=== PATIENT | female | born 1930 | race Caucasian/White ===

== ENCOUNTER → 2017-04-15 | Outpatient (CLI) | payer OTHER | LOC: FCPNEURO 23:10 | PROVIDERS: ATTEND Internal Medicine Sleep Medicine | DX: G47.33 Obstructive sleep apnea (adult) (pediatric) (principal); G47.36 Sleep related hypoventilation in conditions classified elsewhere; G47.61 Periodic limb movement disorder ==

== ENCOUNTER 2017-09-07 13:46 | Emergency (ER) | payer OTHER ==
[2017-09-07 14:17] VITALS: RESP 18
--- NOTE | 2017-09-07 15:02 | EDPHY ---
H & P Stated Complaint: Infected skin tear RLE since Thursday - Personal History Current Tetanus Diphtheria and Acellular Pertussis (TDAP): Unsure - Medical/Surgical History Hx Asthma: No Hx Chronic Respiratory Disease: No Hx Diabetes: No Hx Cardiac Disease: No Hx Renal Disease: No Hx Cirrhosis: No Hx Alcoholism: No Hx HIV/AIDS: No Hx Splenectomy or Spleen Trauma: No Other PMH: high blood pressure, colitis. 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 CVA. dementia - Social History Smoking Status: Former smoker Time Seen by Provider: 09/07/17 14:32 HPI/ROS: Chief complaint: Right lower extremity skin tear with infection History of present illness: This is an 86-year-old female who presents to the emergency department with family for a right lower extremity skin tear that has subsequently developed an infection. Family reports patient sustained a skin tear a week ago. Over the last few days she has developed redness, mild swelling warmth and discomfort around the skin tear. Symptoms are slowly worsening. No report of other associated signs or symptoms including no fevers , no red streaking up the leg, no other lesions. (Rikki Chavarria) - Physical Exam Exam: General: Alert, nontoxic Skin: There is a skin tear to the anterior aspect of the right lower leg. There is surrounding erythema, mild edema and warmth to palpation. No induration or fluctuance to suggest abscess. No red streaking to suggest lymphangitis. Musculoskeletal: Patient is moving the right lower extremity well. Vascular: DP and PT P pulses 2+. Neurologic: Sensation intact throughout the right leg (Rikki Chavarria) Constitutional: Initial Vital Signs Temperature (C) 37.1 C 09/07/17 14:05 Heart Rate 67 09/07/17 14:05 Respiratory Rate 18 09/07/17 14:05 Blood Pressure 198/109 H 09/07/17 14:05 O2 Sat (%) 94 09/07/17 14:05 O2 Delivery Mode Room Air Allergies/Adverse Reactions: amitriptyline Allergy (Intermediate, Verified 09/07/17 14:12) Other-Enter Comments Home Medications: Medication Instructions Recorded Calcium Carbonate [Tums 500MG (*)] 1,000 mg PO BID 01/05/15 Cholecalciferol Vit D3 [Vitamin D3 5,000 units PO DAILY 01/05/15 (*)] Cyanocobalamin [Vitamin B12 (*)] 1,000 mcg PO DAILY 09/25/15 Herbals/Supplements -Info Only 1 ea PO DAILY 09/25/15 Multivitamins [Multivitamin (*)] 1 each PO DAILY 09/25/15 amLODIPine BESYLATE [Norvasc 2.5 2.5 mg PO DAILY 09/25/15 mg (*)] Budesonide [Entocort EC] 9 mg PO DAILY #0 cap.ec 09/28/15 Loperamide HCl [Imodium] 4 mg PO BID PRN #0 cap 09/28/15 Propranolol Sr [Inderal LA 60mg 60 mg PO DAILY #30 cap 09/28/15 (*)] Cephalexin [Keflex] 500 mg PO QID 7 Days cap 09/07/17 Medical Decision Making ED Course/Re-evaluation: The patient was evaluated and managed by the physician's itinerant teacher assistant. My cosignature indicates that I reviewed the chart and I agree with the findings and plan of care as documented. I am the secondary supervising physician. ( Smita Hernandez) Patient discussed with my secondary supervising physician Dr. Smita Hernandez. Patient presents to the emergency department for a right leg skin tear that appears to have gotten infected. She does appear to have a mild cellulitis. Wound has been cleaned, the area demarcated and dressed. Patient is being given a dose of Ancef. I do believe she is appropriate for discharge home. She will be discharged on Keflex. Home care is discussed at length with family. They are given very strict return precautions. They voiced understanding and agreement with plan. (Rikki Chavarria) Differential Diagnosis: Included but not limited to cellulitis, abscess, unlikely osteomyelitis, lymphangitis (Rikki Chavarria) - Data Points Medications Given: Discontinued Medications Acetaminophen (Tylenol) 650 mg PO EDNOW ONE Stop: 09/07/17 15:16 Last Admin: 09/07/17 15:18 Dose: 650 mg Cefazolin Sodium/Dextrose (Ancef 1 Gm (Premix)) 50 mls @ 200 mls/hr IV EDNOW ONE PRN Reason: Protocol Stop: 09/07/17 15:02 Last Admin: 09/07/17 15:02 Dose: 50 mls Departure - Departure Disposition: Home, Routine, Self-Care Clinical Impression: Cellulitis Qualifiers: Site of cellulitis: extremity Site of cellulitis of extremity: lower extremity Laterality: right Qualified Code(s): L03.115 - Cellulitis of right lower limb Condition: Good Instructions: Cellulitis (ED), Acute Wounds (ED) Additional Instructions: Follow-up with your primary care doctor in 1-2 days for recheck Take all antibiotics as prescribed until finished even feeling better Keep wound clean with soap and water and apply antibacterial ointment and a dressing at least twice daily If symptoms worsen or new symptoms develop return to the emergency room for recheck Referrals: Tye Waggoner [Primary Care Provider] - As per Instructions Prescriptions: Cephalexin [Keflex] 500 mg PO QID 7 Days cap
[2017-09-07] MEDS ORDERED: ACETAMINOPHEN 325 MG TAB PO ONE (15:15)
[2017-09-07 15:48] VITALS: BP 116/85; PULSE 71; TEMP 98.4; O2SAT 96
== END 2017-09-07 15:45 | disposition home or self-care (01) ==
DX: L03.115 Cellulitis of right lower limb (principal); Z87.891 Personal history of nicotine dependence; Z86.73 Personal history of transient ischemic attack (TIA), and cerebral infarction without residual deficits
CPT/HCPCS: 96365; 99284; J0690

== ENCOUNTER 2017-12-24 10:48 | Inpatient (IN) | payer OTHER ==
--- NOTE | 2017-12-24 11:07 | CPEKG ---
Heart Rate: 82 RR Interval: 732 P-R Interval: 192 QRSD Interval: 90 QT Interval: 424 QTC Interval: 496 P [place]: -6 QRS [place]: -48 T Wave [place]: 50 EKG Severity - ABNORMAL ECG - EKG Impression: SINUS RHYTHM EKG Impression: LEFT ANTERIOR FASCICULAR BLOCK EKG Impression: LEFT VENTRICULAR HYPERTROPHY EKG Impression: BORDERLINE PROLONGED QT INTERVAL Electronically Signed By: Ama Jeffrey 24-Dec-2017 14:54:50
--- NOTE | 2017-12-24 11:18 | EDPHY ---
H & P Time Seen by Provider: 12/24/17 10:56 HPI/ROS: CHIEF COMPLAINT: Unresponsive Limitations: Unresponsiveness HISTORY OF PRESENT ILLNESS: 87-year-old female with dementia and prior CVA presents with unresponsiveness. She was last seen normal last evening at 5:00 p.m.. She has felt fatigued over the last week, but no other symptoms. She was found this morning in bed, unresponsive and soaked in urine. She was unable to sit up unassisted and unable to ambulate. Recently had a urinary tract infection and was treated with an unknown antibiotic. No fever and no recent fall. REVIEW OF SYSTEMS: Unable to obtain Past Medical/Surgical History: Dementia CVA Social History: Lives with family, has caregivers during the day Smoking Status: Former smoker Physical Exam: General Appearance: Opens eyes to voice Eyes: Pupils equal and round, no conjunctival pallor ENT, Mouth: Mucous membranes moist Neck: Normal inspection Respiratory: Lungs are clear to auscultation anteriorly Cardiovascular: Regular rate and rhythm Gastrointestinal: Abdomen is soft, no apparent tenderness Back: Abrasion on right side of mid back Neurological: Opens eyes to voice, moves all extremities spontaneously, no response to commands Skin: Warm and dry Extremities: Normal inspection Psychiatric: Unable to determine Constitutional: Initial Vital Signs Temperature (C) 36.9 C 12/24/17 10:52 Heart Rate 93 12/24/17 10:52 Respiratory Rate 18 12/24/17 10:52 Blood Pressure 117/94 H 12/24/17 10:52 O2 Sat (%) 92 12/24/17 10:52 O2 Delivery Mode Room Air Allergies/Adverse Reactions: amitriptyline Allergy (Intermediate, Verified 12/24/17 10:50) Other-Enter Comments Home Medications: Medication Instructions Recorded Calcium Carbonate [Tums 500MG (*)] 1,000 mg PO BID 01/05/15 Cholecalciferol Vit D3 [Vitamin D3 5,000 units PO DAILY 01/05/15 (*)] Cyanocobalamin [Vitamin B12 (*)] 1,000 mcg PO DAILY 09/25/15 amLODIPine BESYLATE [Norvasc 2.5 2.5 mg PO BID 09/25/15 mg (*)] Budesonide [Entocort EC] 9 mg PO DAILY #0 cap.ec 09/28/15 Loperamide HCl [Imodium] 4 mg PO BID PRN #0 cap 09/28/15 Propranolol Sr [Inderal LA 60mg 60 mg PO DAILY #30 cap 09/28/15 (*)] Medical Decision Making - Diagnostics EKG Interpretation: EKG interpreted by me reveals normal sinus rhythm, rate 82, LVH Imaging Results: Chest X-Ray 12/24/17 10:58 Impression: Stable portable chest. Head CT 12/24/17 10:58 Impression: 1. No acute intracranial findings. If symptoms persist and clinical suspicion warrants, consider MRI. 2. Diffuse cerebral atrophy with periventricular and subcortical low attenuation consistent with chronic microvascular ischemic gliosis. Findings discussed with SHEEBA MARTINEZ 12/24/2017 at 12:07. Imaging: Discussed imaging studies w/ call center representative Radiologist, I viewed and interpreted images myself ED Course/Re-evaluation: This patient presents with altered mental status, without localizing signs or symptoms. Stat EKG reveals no evidence of dysrhythmia or ischemia. CT scan of the brain and chest x-ray ordered. cath UA ordered d/t recent UTI. CT scan of the brain read by the radiologist reveals no acute disease. Chest x- ray is unremarkable. Laboratory studies reveal elevated troponin 0.43, consistent with non ST segment elevation PA. Results discussed with the family. The patient's daughter has medical POA and the patient is DNR. UA c/w UTI; likely reason for AMS and leukocytosis. Urine cx sent and Rocephin 1gm IV given. The hospitalist service was consulted for admission. Will admit to stepdown. This pt utilized 35 minutes of critical care time by me exclusive of unbundled procedures. Time spent in direct pt care, reassessments, discussions with family , ordering and review of testing, consultation. Organ at risk: brain/heart Differential Diagnosis: Altered mental status including but not limited to hypoglycemia, infectious process, electrolyte abnormality, head injury, CVA, and intoxicants. - Data Points Laboratory Results: Laboratory Results 12/24/17 12:30 12/24/17 12:30 Medications Given: Acetaminophen (Tylenol Rectal) 650 mg [place] Q4HRS PRN PRN Reason: Pain, Mild/Fever,Can't Take PO Stop: 06/22/18 13:48 Last Admin: 12/25/17 23:35 Dose: 650 mg Acetaminophen (Tylenol) 650 mg PO Q4HRS PRN PRN Reason: Pain, Mild/Fever, Can Take PO Stop: 06/25/18 00:34 Last Admin: 12/27/17 21:14 Dose: 650 mg Amoxicillin/Clavulanate Potassium (Augmentin 875mg) 875 mg PO BID [facility] Stop: 01/26/18 10:59 Last Admin: 12/28/17 07:46 Dose: 875 mg Enoxaparin Sodium (Lovenox) 40 mg SC DAILY [facility] Stop: 06/23/18 08:59 Last Admin: 12/28/17 07:46 Dose: 40 mg Hydralazine HCl (Apresoline) 5 mg IVP Q6HRS PRN PRN Reason: SBP>190 Stop: 06/26/18 04:17 Last Admin: 12/28/17 04:51 Dose: 5 mg Metoprolol Tartrate (Lopressor) 50 mg PO BID [facility] Stop: 06/26/18 08:44 Last Admin: 12/28/17 09:10 Dose: Not Given Ondansetron HCl (Zofran Odt) 4 mg PO Q4HRS PRN PRN Reason: Nausea/Vomiting, Use 1st Stop: 06/22/18 13:48 Last Admin: 12/27/17 21:13 Dose: 4 mg Vancomycin HCl (Vancocin Oral Liquid) 125 mg PO QID JOE PRN Reason: Protocol Stop: 01/23/18 20:59 Last Admin: 12/28/17 04:52 Dose: 125 mg Discontinued Medications Enalaprilat (Vasotec Iv) 1.25 mg IVP Q6HRS [facility] Stop: 06/23/18 11:59 Last Admin: 12/26/17 05:21 Dose: 1.25 mg Sodium Chloride (Ns) 500 mls @ 1,000 mls/hr IV EDNOW ONE PRN Reason: Protocol Stop: 12/24/17 12:38 Last Admin: 12/24/17 12:17 Dose: 500 mls Ceftriaxone Sodium/Dextrose (Rocephin 1 Gm (Premix)) 50 mls @ 100 mls/hr IV EDNOW ONE PRN Reason: Protocol Stop: 12/24/17 14:17 Last Admin: 12/24/17 13:52 Dose: 50 mls Potassium Chloride/Sodium Chloride (Ns W/ 20 Kcl/L) 1,000 mls @ 100 mls/hr IV CONT [facility] Stop: 06/22/18 13:59 Last Admin: 12/26/17 07:12 Dose: 1,000 mls Ceftriaxone Sodium/Dextrose (Rocephin 1 Gm (Premix)) 50 mls @ 100 mls/hr IV DAILY [facility] PRN Reason: Protocol Stop: 01/24/18 08:59 Last Admin: 12/27/17 11:08 Dose: Not Given Acyclovir 450 mg/ Dextrose 109 mls @ 100 mls/hr IV Q8H JOE Stop: 01/23/18 17:59 Last Admin: 12/25/17 09:52 Dose: 109 mls Metronidazole/Sodium Chloride (Flagyl 500 Mg (Premix)) 100 mls @ 100 mls/hr IV Q8HRS JOE PRN Reason: Protocol Stop: 01/23/18 22:56 Last Admin: 12/26/17 05:21 Dose: 100 mls Potassium Chloride 40 meq/ (Dextrose/Sodium Chloride) 1,000 mls @ 100 mls/hr IV CONT [facility] Stop: 06/24/18 08:29 Last Admin: 12/28/17 04:56 Dose: 1,000 mls Magnesium Sulfate/Dextrose (Magnesium Sulf 1 Gm (Premix)) 100 mls @ 100 mls/hr IV ONCE ONE Stop: 12/28/17 08:46 Last Admin: 12/28/17 07:56 Dose: 100 mls Metoprolol Tartrate (Lopressor Injection) 2.5 mg IVP ONCE ONE Stop: 12/25/17 20:06 Last Admin: 12/25/17 20:15 Dose: 2.5 mg Metoprolol Tartrate (Lopressor) 12.5 mg PO BID JOE Stop: 06/24/18 20:59 Last Admin: 12/27/17 08:26 Dose: 12.5 mg Metoprolol Tartrate (Lopressor) 25 mg PO BID JOE Stop: 06/25/18 08:44 Last Admin: 12/28/17 05:38 Dose: 25 mg Metoprolol Tartrate (Lopressor Injection) 5 mg IVP ONCE ONE Stop: 12/28/17 07:22 Last Admin: 12/28/17 07:26 Dose: 5 mg Nitroglycerin (Nitro-Bid 2%) 0.5 inch TP EDNOW ONE Stop: 12/24/17 13:17 Last Admin: 12/24/17 13:23 Dose: 0.5 inch Potassium Chloride (Klor-Con) 40 meq PO ONCE ONE Stop: 12/28/17 08:01 Last Admin: 12/28/17 09:01 Dose: 40 meq Departure - Departure Disposition: [facility] Inpatient Acute Clinical Impression: Elevated troponin UTI (urinary tract infection) Qualifiers: Urinary tract infection type: acute cystitis Hematuria presence: without hematuria Qualified Code(s): N30.00 - Acute cystitis without hematuria Altered mental status Qualifiers: Altered mental status type: stupor Qualified Code(s): R40.1 - Stupor Condition: Serious
[2017-12-24] MEDS ORDERED: NS 500 ML IV ONE (12:09)
[2017-12-24 12:37] LABS: PLATELET COUNT 245 10^3/uL (150-400)
[2017-12-24] MEDS ORDERED: NITROGLYCERIN 2% 1 GM PACKET TP ONE (13:16)
[2017-12-24] MEDS ORDERED: ONDANSETRON DISINTEGRATING 4 MG TAB PO PRN (13:49)
[2017-12-24] MEDS ORDERED: ONDANSETRON 4 MG/2 ML VIAL IVP PRN (13:49)
[2017-12-24] MEDS: ACETAMINOPHEN 650 MG SUPP PR PRN (14:56)
[2017-12-24] MEDS: NS W/ 20 KCl/L 1,000 ML IV SCH (14:58)
--- NOTE | 2017-12-24 17:00 | PDGENHP ---
History and Physical - Chief Complaint Acute encephalopathy - History of Present Illness Primary care provider: Dr. Tye Waggoner HPI: 87-year-old female presenting with acute encephalopathy characterized as complete unresponsiveness with onset of symptoms on the morning of presentation with associated urinary incontinence, fecal incontinence, loose stool, and generalized weakness. The patient was last seen at her baseline at 5:00 p.m. On the day prior to this presentation, and the patient's daughter reports that patient had already gone to bed and was asleep at 6:00 p.m. When she arrived home from work. On the morning of presentation, the patient's daughter and her daughter's found the patient unresponsive in her own stool and urine, and attempted to get her to the shower to clean up. The patient was unable to stand was unable to ambulate, and she was basically care into the shower, cleaned up, and brought to the emergency department. The symptoms have occurred in the context of approximately 1 week of fatigue with persistent duration, but no expression of chest pain, dysuria, abdominal pain, headache, back pain. The patient's baseline mental status is verbally conversant, able to complete her ADLs comma but with poor memory, intermittent disorientation, and withdrawn affect. History Information - Allergies/Home Medication List Allergies/Adverse Reactions: amitriptyline Allergy (Intermediate, Verified 12/24/17 10:50) Other-Enter Comments Home Medications: Calcium Carbonate [Tums 500MG (*)] 1,000 mg PO BID 01/05/15 [Last Taken 09/24/15 ] Cholecalciferol Vit D3 [Vitamin D3 (*)] 5,000 units PO DAILY 01/05/15 [Last Taken 09/24/15] Cyanocobalamin [Vitamin B12 (*)] 1,000 mcg PO DAILY 09/25/15 [Last Taken ] amLODIPine BESYLATE [Norvasc 2.5 mg (*)] 2.5 mg PO BID 09/25/15 [Last Taken 07/30] I have personally reviewed and updated: family history, medical history, social history, surgical history - Past Medical History Additional medical history: Microscopic colitis on chronic entero court, most recent flare several weeks ago. Hypertension. Urinary tract infection approximately a month ago treated with Keflex. Dementia. HSV meningitis. Cerebral amyloid angiopathy. Osteoporosis. Punctate intracranial hemorrhage September 2015 - Surgical History Reports: no pertinent surgical hx - Family History Additional family history: No family history of venous thromboembolism, her daughter from lung cancer - Social History Smoking Status: Former smoker Alcohol Use: None Drug Use: None Additional social history: Patient resides with her daughter and her family, she has a medical sales consultant who provides some private duty home care Review of Systems Review of Systems: ROS: 10pt was reviewed & negative except for what was stated in HPI & below Constitutional: Reports: weakness Neurological: Reports: other (Unresponsiveness) Physical Exam Physical Exam: Temp Pulse Resp BP Pulse Ox 37.1 C 77 21 H 151/134 H 93 12/24/17 15:58 12/24/17 15:58 12/24/17 15:58 12/24/17 15:58 12/24/17 15:58 Constitutional: no apparent distress, not in pain, No uncomfortable Eyes: PERRL, other (Fixed, not track) Ears, Nose, Mouth, Throat: dry mucous membranes Cardiovascular: regular rate and rhythym, no murmur, rub, or gallop, No edema Respiratory: no respiratory distress, no rales or rhonchi, clear to auscultation , reduced air movement (Poor inspiratory and expiratory effort) Gastrointestinal: normoactive bowel sounds, soft, non-tender abdomen, no palpable masses, No distension Genitourinary: no bladder fullness, no bladder tenderness Skin: other (Some scattered abrasions bilateral lower extremities without surrounding erythema) Neurologic: other (Alert awake oriented times 0), No facial droop Psychiatric: encephalopathic, other (Moans to tactile stimuli) Lab Data & Imaging Review 12/24/17 12:30 12/24/17 12:30 WBC 25.77 10^3/uL (3.80-9.50) H 12/24/17 12:30 RBC 5.90 10^6/uL (4.18-5.33) H 12/24/17 12:30 Hgb 17.0 g/dL (12.6-16.3) H 12/24/17 12:30 POC Hgb 19.4 gm/dL (12.6-16.3) H 12/24/17 11:37 Hct 51.6 % (38.0-47.0) H 12/24/17 12:30 POC Hct 57 % (38-47) H 12/24/17 11:37 MCV 87.5 fL (81.5-99.8) 12/24/17 12:30 MCH 28.8 pg (27.9-34.1) 12/24/17 12:30 MCHC 32.9 g/dL (32.4-36.7) 12/24/17 12:30 RDW 13.8 % (11.5-15.2) 12/24/17 12:30 Plt Count 245 10^3/uL (150-400) 12/24/17 12:30 MPV 9.5 fL (8.7-11.7) 12/24/17 12:30 Neut % (Auto) 83.5 % (39.3-74.2) H 12/24/17 12:30 Lymph % (Auto) 5.6 % (15.0-45.0) L 12/24/17 12:30 Hunt % (Auto) 9.9 % (4.5-13.0) 12/24/17 12:30 Eos % (Auto) 0.0 % (0.6-7.6) L 12/24/17 12:30 Baso % (Auto) 0.3 % (0.3-1.7) 12/24/17 12:30 Nucleat RBC Rel Count 0.0 % (0.0-0.2) 12/24/17 12:30 Absolute Neuts (auto) 21.51 10^3/uL (1.70-6.50) H 12/24/17 12:30 Absolute Lymphs (auto) 1.44 10^3/uL (1.00-3.00) 12/24/17 12:30 Absolute Monos (auto) 2.55 10^3/uL (0.30-0.80) H 12/24/17 12:30 Absolute Eos (auto) 0.01 10^3/uL (0.03-0.40) L 12/24/17 12:30 Absolute Basos (auto) 0.08 10^3/uL (0.02-0.10) 12/24/17 12:30 Absolute Nucleated RBC 0.00 10^3/uL (0-0.01) 12/24/17 12:30 Immature Gran % 0.7 % (0.0-1.1) 12/24/17 12:30 Immature Gran # 0.18 10^3/uL (0.00-0.10) H 12/24/17 12:30 POC Sodium 136 mEq/L (135-145) 12/24/17 11:37 Sodium 134 mEq/L (135-145) L 12/24/17 12:30 POC Potassium 4.5 mEq/L (3.3-5.0) 12/24/17 11:37 Potassium 3.7 mEq/L (3.5-5.2) 12/24/17 12:30 POC Chloride 95 mEq/L (97-110) L 12/24/17 11:37 Chloride 96 mEq/L (97-110) L 12/24/17 12:30 Carbon Dioxide 25 mEq/l (22-31) 12/24/17 12:30 Anion Gap 13 mEq/L (8-16) 12/24/17 12:30 POC BUN 21 mg/dL (7-23) 12/24/17 11:37 BUN 16 mg/dL (7-23) 12/24/17 12:30 Creatinine 0.6 mg/dL (0.6-1.0) 12/24/17 12:30 POC Creatinine 0.7 mg/dL (0.6-1.0) 12/24/17 11:37 Estimated GFR > 60 12/24/17 12:30 Glucose 126 mg/dL (70-100) H 12/24/17 12:30 POC Glucose 146 mg/dL (70-100) H 12/24/17 11:37 Calcium 9.9 mg/dL (8.5-10.4) 12/24/17 12:30 Troponin I 0.433 ng/mL (0.000-0.034) H 12/24/17 12:30 Urine Color YELLOW 12/24/17 13:08 Urine Appearance MODERATELY TURBID 12/24/17 13:08 Urine pH 5.0 (5.0-7.5) 12/24/17 13:08 Ur Specific [place] 1.014 (1.002-1.030) 12/24/17 13:08 Urine Protein 2+ (NEGATIVE) H 12/24/17 13:08 Urine Ketones TRACE (NEGATIVE) H 12/24/17 13:08 Urine Blood 1+ (NEGATIVE) H 12/24/17 13:08 Urine Nitrate POSITIVE (NEGATIVE) H 12/24/17 13:08 Urine Bilirubin NEGATIVE (NEGATIVE) 12/24/17 13:08 Urine Urobilinogen NEGATIVE EU (0.2-1.0) 12/24/17 13:08 Ur Leukocyte Esterase 2+ (NEGATIVE) H 12/24/17 13:08 Urine RBC 3-5 /hpf (0-3) H 12/24/17 13:08 Urine WBC 50-182 /hpf (0-3) H 12/24/17 13:08 Ur Epithelial Cells TRACE /lpf (NONE-1+) 12/24/17 13:08 Urine Bacteria 2+ /hpf (NONE SEEN) H 12/24/17 13:08 Urine Mucus 1+ /lpf (NONE-1+) 12/24/17 13:08 Urine Glucose NEGATIVE (NEGATIVE) 12/24/17 13:08 Visualized and Interpreted Chest x-ray results: Yes Chest X-Ray results: no infiltrate, other (Fibrotic changes) Visualized and Interpreted EKG results: Yes EKG Interpretation: Positive for: other (Left anterior fascicular block, normal sinus rhythm) Assessment & Plan Assessment: 87-year-old female presents with sepsis and acute encephalopathy, type 2 NSTEMI , suspected urinary tract infection Plan: 1. Sepsis. Present on admission, qSOFA score of 2 (encephalopathy and tachypnea ), evidenced by autonomic dysregulation in the setting of infection with evidence of end-organ failure, including acute encephalopathy, type [address]- elevation [place] -supportive care with IV fluids, empiric IV antibiotics and antivirals given her history of HSV meningitis -step-down unit level of care, monitor hemodynamics closely -complete infectious workup including respiratory viral panel, strep swab given recent exposure, blood cultures, procalcitonin level, lumbar puncture if above negative 2. Possible urinary tract infection. Present on admission, Likely infectious source with positive urinalysis, urinary incontinence, mental status changes, leukocytosis and fever -IV ceftriaxone day 1 -urine cultures pending -blood culture sent -order outside records from primary care provider office to evaluate her most recent urine culture and sensitivity 3. Type [address]-elevation myocardial infarction. Present on admission, Evidenced by troponin 0.4, most likely secondary to sepsis -get echocardiogram to evaluate for focal wall motion abnormalities -cycle cardiac enzymes -monitor on telemetry for arrhythmia 4. Acute on chronic encephalopathy. Evidenced by global brain dysfunction characterized as complete unresponsiveness which is an acute change from her baseline mental status which is poor memory, intermittent disorientation, disengaged affect, but she is significantly altered from her baseline and is completely unable to respond to verbal or tactile stimuli, most likely secondary to the toxic effects of infection -treat infection as above -if the above infectious evaluation is negative, will get lumbar puncture and will treat empirically for HSV meningitis in the interim 5. Hypertension. Chronic, hold home medications in the setting of inability to tolerate oral intake 6. Cerebral amyloid angiopathy. Chronic, head CT without any evidence of bleed Diet. NPO, IV fluids, [employer] eval in a.m. Prophylaxis. High risk patient, Lovenox 40 Code. Daughter is MD VERGARA, patient is do not resuscitate Disposition. Anticipated discharge uncertain this time, anticipated length stay is greater than 48 hr for reasonable medical necessity including sepsis with type 2 NSTEMI, encephalopathy. 45 min of critical care time spent with this patient, at bedside, with her daughter, coordinating with the nursing staff, specifically addressing the issue of sepsis which places patient at high risk for worsening morbidity and/ or mortality and renders the patient critically ill.
[2017-12-24] MEDS: D5W IV SCH (18:09)
[2017-12-24] MEDS: ACYCLOVIR IV SCH (18:09)
[2017-12-24] MEDS: VANCOMYCIN 125 MG/2.5 ML UDL PO SCH (22:20)
--- NOTE | 2017-12-24 22:58 | HOSPPROG ---
Hospitalist Progress Note Assessment/Plan: #C diff positive -patient unable to take orals, so will dose IV Flagyl tonight. Oral vanc if passes swallow tomorrow Objective: Vital Signs Temp Pulse Resp BP Pulse Ox 37.0 C 97 19 139/87 H 96 12/24/17 19:46 12/24/17 19:46 12/24/17 19:46 12/24/17 19:46 12/24/17 19:46 Microbiology 12/24/17 17:30 Gastrointestinal Tract Panel (PCR) - Final Stool Clostridium Difficile Detected 12/24/17 16:50 Respiratory Panel (PCR) - Final Nasal, Sinus - [place] Viral Transport No Organism Detected 12/23/17 12/24/17 12/25/17 05:59 05:59 05:59 Intake Total 1008 Balance 1008 ICD10 Worksheet Patient Problems: Problems Problem Status Onset Altered mental status Acute Elevated troponin Acute UTI (urinary tract infection) Acute CVA (cerebral infarction) Acute Cellulitis Acute Diarrhea Acute History of meningitis Acute Intraparenchymal hematoma of brain Acute Paresthesia Acute
[2017-12-25] MEDS: D5W IV SCH ×2 (01:55→09:52)
[2017-12-25] MEDS: ACYCLOVIR IV SCH ×2 (01:55→09:52)
[2017-12-25] MEDS: NS W/ 20 KCl/L 1,000 ML IV SCH ×2 (04:31→18:34)
[2017-12-25 05:07] LABS: PLATELET COUNT 168 10^3/uL (150-400)
[2017-12-25 05:18] LABS: INR 1.06 (0.83-1.16)
[2017-12-25 05:33] LABS: CREATINE KINASE 50 IU/L (0-156)
[2017-12-25] MEDS: VANCOMYCIN 125 MG/2.5 ML UDL PO SCH ×4 (05:38→21:39)
[2017-12-25] MEDS: ENOXAPARIN 40 MG/0.4 ML SYR SC SCH (09:12)
--- NOTE | 2017-12-25 10:09 | ECHO ---
[email or web address] [address] [address] Main: [phone] Fax: Transthoracic Echocardiogram Name: FAVIAN LEWIS MR#: [id number] Study Date: 12/25/2017 Study Time: 08:29 AM Date of : 1930 Age: 87 year(s) Height: 170.2 cm (67 in.) Weight: 45.36 kg (100 lb.) BSA: 1.51 m2 Gender: Female Examination: Echo Indication: Eval wall motion/type II nstemi Image Quality: Technically Difficult Contrast: Requested by: Jose Lugo BP: 137 mmHg/104 mmHg Heart Rate: Rhythm: Indication: Eval wall motion/type II nstemi Procedure Staff Tower Erector Helper: Ruma Clarke RDCS Reading Physician: Edison uJarez MD Requesting Provider: Conclusions: Normal study Measurements: Chambers Valvular Assessment AV/MV Valvular Assessment TV/PV Normal Normal Normal Name Value Range Name Value Range Name Value Range Ao Annia (MM): 3.7 cm (2.2 cm-3.7 AV meanP mmHg ( - ) cm) MV E Vmax: 0.31 m/s ( - ) IVSd (2D): 0.9 cm (0.6 cm-1.1 MV A Vmax: 0.99 m/s ( - ) cm) MV E/A: 0.31 ( - ) LVDd (2D): 4.8 cm (3.9 cm-5.3 cm) LVPWd (2D): 0.9 cm ( - ) EF Range: 70-75 % Continued Measurements: Chambers Valvular Assessment AV/MV Name Value Name Value LADs: 2.9 cm MV E' Septal: 0.05 m/s MV E/E' Septal: 6.60 MV E/E' Lateral: 3.90 Additional Vessels Name Value Ao Ascendin.5 cm Patient: FAVIAN LEWIS Study Date: 12/25/2017 Page 1 of 2 08:29 AM Findings: Left Ventricle: Normal size left ventricle. Mild concentric LV hypertrophy. Global hypercontractility of the left ventricle. The ejection fraction is estimated to be 70-75 %. No regional wall motion abnormality. Right Ventricle: Normal size right ventricle. Left Atrium: The left atrium is normal in size. Right Atrium: The right atrium is normal in size. Mitral Valve: The mitral valve is normal in appearance. Trivial mitral valve regurgitation. Aortic Valve: AV opens well.. Tricuspid Valve: The tricuspid valve appears normal. Trivial tricuspid valve regurgitation. Pulmonic Valve: Pulmonary valve not well visualized. Pericardium: No pericardial effusion. There is pericardial fat. (No Signature Object) Patient: FAVIAN LEWIS Study Date: 12/25/2017 Page 2 of 2 08:29 AM [id number]
--- NOTE | 2017-12-25 10:33 | PDMN ---
Medical Necessity Medical necessity: Patient meets inpatient criteria per physician note and MCG M -230 SC (type 2 NSTEMI/elevated troponins, likely d/t sepsis, leukocytosis/WBC > 25,000 d/t poss UTI; acute on chronic encephalopathy; anticipated LOS > 2 midnights for ongoing IV hydration, empiric IV antibiotics, ongoing cardiac monitoring.)
[2017-12-25] MEDS: ENALAPRILAT DIHYDRATE 1.25 MG/ML VIAL IVP SCH ×3 (11:17→23:34)
[2017-12-25] MEDS: ACETAMINOPHEN 650 MG SUPP PR PRN ×2 (11:17→23:35)
--- NOTE | 2017-12-25 11:26 | ASMTCMCOM ---
CM Note CM Note Notes: Patient admitted for AMS and possible UTI; she is C Diff positive. I spoke with her daughter and son-in-law whom she lives with. They say that she is usually mostly independent in her ADLs and that she is supervised by caregivers from [facility] during the day when her family is at work. They realize that she may need SNF rehab upon discharge. She has been to [facility] in the past after a hip fracture. I have sent referrals to [facility], [facility], and [facility]. The family will make their choice and let us know. Date Signed: 12/25/2017 11:26 AM Electronically Signed By:Noreen Day RN
--- NOTE | 2017-12-25 17:48 | HOSPPROG ---
Hospitalist Progress Note Assessment/Plan: Assessment: 87-year-old female presents with sepsis and acute encephalopathy, type 2 NSTEMI , suspected urinary tract infection and C. difficile colitis Plan: 1. Sepsis. Present on admission, qSOFA score of 2 (encephalopathy and tachypnea ), evidenced by autonomic dysregulation in the setting of infection with evidence of end-organ failure, including acute encephalopathy, type [address]- elevation [place] -ongoing Abx, IVF 2. Possible urinary tract infection. Present on admission, likely infectious source with positive urinalysis, urinary incontinence, mental status changes, leukocytosis and fever, reviewed outside records including most recent UCx from Dr. Waggoner's office, demonstrating keflex resistant E. coli -patient likely did not recover from most recent course of Abx (1 month ago), and this presentation could be a result of progression -IV ceftriaxone day 2 -urine cultures pending -blood culture pending 3. Type [address]-elevation myocardial infarction. Present on admission, Evidenced by troponin 0.4, most likely secondary to sepsis -no wma on Echo -monitor on telemetry for arrhythmia 4. Acute on chronic encephalopathy. Evidenced by global brain dysfunction characterized as complete unresponsiveness which is an acute change from her baseline mental status which is poor memory, intermittent disorientation, disengaged affect, but she is significantly altered from her baseline and is completely unable to respond to verbal or tactile stimuli, most likely secondary to the toxic effects of infection -treat infection as above, remains densely encephalopathic today but is now moaning verbal response to tactile/verbal stimuli which is improvement from day prior -cont on SDU level of care given how dense her encephalopathy is and the fall risk/aspiration risk associated w/ it 5. Hypertension. Chronic, hold home medications in the setting of inability to tolerate oral intake, place on scheduled IV enalapril 6. Cerebral amyloid angiopathy. Chronic, head CT without any evidence of bleed 7. Acute C. difficile colitis. POA, positive PCR and fecal incontinence w/ recent Abx exposure -d/w Dr. Casper on team rounds, we agreed to continue IV flagyl, hold PO vanco until patient's mental status improved enough to enrique PO -d/w family, if patient's mental status not improving over next 24hrs w/ IV flagyl, then we may place NGT to admin Vanco liq Diet. NPO, IV fluids, BUILDING [employer]PENTER eval in a.m. Prophylaxis. High risk patient, Lovenox 40 Code. Daughter is MD VERGARA, patient is do not resuscitate Disposition. Anticipated discharge uncertain this time, remains critically ill. High-level medical complexity, high risk for worsening morbidity and/or mortality secondary to the issues outlined above. Subjective: Patient moaning to verbal and tactile stimuli Objective: Vital Signs Temp Pulse Resp BP Pulse Ox 36.4 C 883 H 19 113/69 98 12/25/17 16:00 12/25/17 16:00 12/25/17 16:00 12/25/17 16:00 12/25/17 16:00 Microbiology 12/24/17 17:30 Gastrointestinal Tract Panel (PCR) - Final Stool Clostridium Difficile Detected 12/24/17 16:50 Respiratory Panel (PCR) - Final Nasal, Sinus - Ophir Viral Transport No Organism Detected Laboratory Results 12/25/17 05:01 12/25/17 05:01 12/24/17 12/25/17 12/26/17 05:59 05:59 05:59 Intake Total 2141 Balance 2141 PT 14.0 SEC (12.0-15.0) 12/25/17 05:01 INR 1.06 (0.83-1.16) 12/25/17 05:01 - Physical Exam Constitutional: no apparent distress, not in pain, other (aged appearing), No uncomfortable Eyes: PERRL, anicteric sclera, other (fixed, not tracking) Cardiovascular: regular rate and rhythym, no murmur, rub, or gallop, No edema Respiratory: no respiratory distress, no rales or rhonchi, clear to auscultation Gastrointestinal: normoactive bowel sounds, tenderness (diffuse across abd), No guarding, No distension Skin: other (ecchymoses bilat LE) Neurologic: other (AAOx0) Psychiatric: not anxious, encephalopathic, flat affect, other (responsive to verbal/tactile stimuli but no coherent speech), No agitated ICD10 Worksheet Patient Problems: Problems Problem Status Onset CVA (cerebral infarction) Acute Paresthesia Acute History of meningitis Acute Intraparenchymal hematoma of brain Acute Diarrhea Acute Cellulitis Acute UTI (urinary tract infection) Acute Altered mental status Acute Elevated troponin Acute
--- NOTE | 2017-12-25 20:04 | CPEKG ---
Heart Rate: 141 RR Interval: 426 QRSD Interval: 86 QT Interval: 324 QTC Interval: 496 QRS [place]: -38 EKG Severity - ABNORMAL ECG - EKG Impression: ATRIAL FIBRILLATION EKG Impression: LEFT AXIS DEVIATION EKG Impression: PROBABLE LVH WITH SECONDARY REPOL ABNRM EKG Impression: ST DEPRESSION, PROBABLY RATE RELATED EKG Impression: BORDERLINE PROLONGED QT INTERVAL Electronically Signed By: Anju Barrett 26-Dec-2017 19:55:40
[2017-12-25] MEDS ORDERED: METOPROLOL TARTRATE 5 MG/5 ML INJ IVP ONE (20:05)
[2017-12-26] MEDS: ENALAPRILAT DIHYDRATE 1.25 MG/ML VIAL IVP SCH (05:21)
[2017-12-26] MEDS: VANCOMYCIN 125 MG/2.5 ML UDL PO SCH ×4 (05:24→21:17)
[2017-12-26] MEDS: NS W/ 20 KCl/L 1,000 ML IV SCH (07:12)
[2017-12-26] MEDS: ENOXAPARIN 40 MG/0.4 ML SYR SC SCH (09:05)
[2017-12-26] MEDS: POTASSIUM Cl (KCl) 40 MEQ in D5W 1/2 NS 1,000 ML IV SCH ×2 (09:06→20:58)
--- NOTE | 2017-12-26 18:47 | HOSPPROG ---
Hospitalist Progress Note Assessment/Plan: Assessment: 87-year-old female presents with sepsis and acute encephalopathy, type 2 NSTEMI , suspected urinary tract infection and C. difficile colitis, c/b new onset Afib Plan: 1. Sepsis. Present on admission, qSOFA score of 2 (encephalopathy and tachypnea ), evidenced by autonomic dysregulation in the setting of infection with evidence of end-organ failure, including acute encephalopathy, type [address]- elevation [place] -resolved 2. E. coli urinary tract infection. Present on admission, likely infectious source with positive urinalysis, urinary incontinence, mental status changes, leukocytosis and fever, reviewed outside records including most recent UCx from Dr. Waggoner's office, demonstrating keflex resistant E. coli -patient likely did not recover from most recent course of Abx (1 month ago), and this presentation could be a result of progression -IV ceftriaxone day 3 -awaiting sensitivity 3. Type [address]-elevation myocardial infarction. Present on admission, Evidenced by troponin 0.4, most likely secondary to sepsis -no wma on Echo 4. Acute on chronic encephalopathy. Evidenced by global brain dysfunction characterized as complete unresponsiveness which is an acute change from her baseline mental status which is poor memory, intermittent disorientation, disengaged affect, but she is significantly altered from her baseline and is completely unable to respond to verbal or tactile stimuli, most likely secondary to the toxic effects of infection -treat infection as above, mental status significantly improved today, nearing baseline and able to tolerate PO intake 5. Hypertension. Chronic, adjusted to PO metoprolol 6. Cerebral amyloid angiopathy. Chronic, head CT without any evidence of bleed 7. Acute C. difficile colitis. POA, positive PCR and fecal incontinence w/ recent Abx exposure -counseled patient/daughters that we can now initiate PO vanco, DC metronidazole , and will likely continue for 14 days beyond stop date of cephalosporin 8. Atrial fibrillation. Acute RVR o/n, chemically cardioverted w/ IV metoprolol , likely provoked by sepsis/demand ischemia -counseled daughters that patient should be on a gely blocking agent in short term to reduce likelihood of recurrence, but she should get a 30 day monitor and outpt cards f/u after discharge -will hold ASA/anticoagulation given recent hx of bleed Diet. Regular Prophylaxis. High risk patient, Lovenox 40 Code. Daughter is MD POA, patient is do not resuscitate Disposition. Anticipated discharge uncertain this time, anticipate SNF in 24- 48hrs High-level medical complexity, high risk for worsening morbidity and/or mortality secondary to the issues outlined above. Subjective: patient's mental status significantly improved today Objective: Vital Signs Temp Pulse Resp BP Pulse Ox 36.5 C 82 19 157/84 H 95 12/26/17 16:00 12/26/17 16:00 12/26/17 16:00 12/26/17 16:00 12/26/17 16:00 Laboratory Results 12/26/17 04:54 12/26/17 04:54 12/25/17 12/26/17 12/27/17 05:59 05:59 05:59 Intake Total 2141 3197 1115 Balance 2141 3197 1115 PT 14.0 SEC (12.0-15.0) 12/25/17 05:01 INR 1.06 (0.83-1.16) 12/25/17 05:01 - Time Spent With Patient Time Spent with Patient: greater than 35 minutes Time Spent with Patient: Greater than 35 minutes spent on this patients care, greater than 50% of time spent counseling, educating, and coordinating care regarding the above mentioned plan. - Pending Discharge Pending Discharge Within 48 Hours: Yes Pending Discharge Date: 12/28/17 Pending Discharge Time: 11:00 - Physical Exam Constitutional: no apparent distress, not in pain, chronically ill appearing, No uncomfortable Cardiovascular: systolic murmur (I/vI at sternum), No irregularly irregular, No tachycardia, No edema Respiratory: no respiratory distress, no rales or rhonchi, clear to auscultation Gastrointestinal: normoactive bowel sounds, tenderness (mild), No guarding, No distension Neurologic: other (AAOx2 (person and place)), No facial droop Psychiatric: not anxious, encephalopathic (confused statements), poor insight, poor memory, other (verbally interactive), No agitated ICD10 Worksheet Patient Problems: Problems Problem Status Onset CVA (cerebral infarction) Acute Paresthesia Acute History of meningitis Acute Intraparenchymal hematoma of brain Acute Diarrhea Acute Cellulitis Acute UTI (urinary tract infection) Acute Altered mental status Acute Elevated troponin Acute
[2017-12-26] MEDS: METOPROLOL TARTRATE 25 MG TAB PO SCH (21:17)
[2017-12-27] MEDS: VANCOMYCIN 125 MG/2.5 ML UDL PO SCH ×4 (05:49→21:14)
[2017-12-27] MEDS: METOPROLOL TARTRATE 25 MG TAB PO SCH ×4 (08:26→21:14)
[2017-12-27] MEDS: ENOXAPARIN 40 MG/0.4 ML SYR SC SCH (08:27)
[2017-12-27] MEDS: AMOXICILLIN/CLAVULANATE POT 875/125 MG TAB PO SCH ×2 (11:20→21:13)
--- NOTE | 2017-12-27 14:04 | HOSPPROG ---
Hospitalist Progress Note Assessment/Plan: Assessment: 87-year-old female presents with sepsis and acute encephalopathy, type 2 NSTEMI , suspected urinary tract infection and C. difficile colitis, c/b new onset Afib Plan: 1. Sepsis. Present on admission, qSOFA score of 2 (encephalopathy and tachypnea ), evidenced by autonomic dysregulation in the setting of infection with evidence of end-organ failure, including acute encephalopathy, type [address]- elevation [place] -resolved 2. E. coli urinary tract infection, recurrent. Present on admission, likely infectious source with positive urinalysis, urinary incontinence, mental status changes, leukocytosis and fever, reviewed outside records including most recent UCx from Dr. Waggoner's office, demonstrating keflex resistant E. coli -patient likely did not recover from most recent course of Abx (1 month ago), and this presentation could be a result of progression -s/p 3 days CTX, started on Augmentin bid today for a total 7 day abx course 3. Type [address]-elevation myocardial infarction. Present on admission, Evidenced by troponin 0.4, most likely secondary to sepsis -no wma on Echo 4. Acute on chronic encephalopathy. Evidenced by global brain dysfunction characterized as complete unresponsiveness which is an acute change from her baseline mental status which is poor memory, intermittent disorientation, disengaged affect, but she is significantly altered from her baseline and is completely unable to respond to verbal or tactile stimuli, most likely secondary to the toxic effects of infection -treat infection as above, mental status significantly improved today, but ongoing visual hallucinations and non-linear thought process -high fall risk, unsafe to DC to snf today, can DC tele if patient agitated by it 5. Hypertension. Chronic, adjusted to PO metoprolol 6. Cerebral amyloid angiopathy. Chronic, head CT without any evidence of bleed 7. Acute C. difficile colitis. POA, positive PCR and fecal incontinence w/ recent Abx exposure -cont on PO vanco, 14 days beyond Augmentin discontinuation 8. Atrial fibrillation. Acute RVR o/n, chemically cardioverted w/ IV metoprolol , likely provoked by sepsis/demand ischemia -increased metop to 25mg bid -will hold ASA/anticoagulation given recent hx of bleed Diet. Regular Prophylaxis. High risk patient, Lovenox 40 Code. Daughter is MD VERGARA, patient is do not resuscitate Disposition. Anticipated discharge uncertain this time, anticipate SNF in 24- 48hrs High-level medical complexity, high risk for worsening morbidity and/or mortality secondary to the issues outlined above. Subjective: patient w/ non-linear statements, appears to be visually hallucinating Objective: Vital Signs Temp Pulse Resp BP Pulse Ox 36.4 C 71 16 166/81 H 99 12/27/17 04:00 12/27/17 11:20 12/27/17 11:20 12/27/17 11:20 12/27/17 11:20 Microbiology 12/24/17 13:39 Urine Culture - Final Urine,Clean Catch Escherichia Coli Laboratory Results 12/27/17 04:24 12/27/17 04:24 12/26/17 12/27/17 12/28/17 05:59 05:59 05:59 Intake Total 3197 2387 Balance 3197 2387 PT 14.0 SEC (12.0-15.0) 12/25/17 05:01 INR 1.06 (0.83-1.16) 12/25/17 05:01 - Physical Exam Constitutional: no apparent distress, appears nourished, not in pain, No uncomfortable Cardiovascular: regular rate and rhythym, no murmur, rub, or gallop, No edema Respiratory: no respiratory distress, no rales or rhonchi, clear to auscultation Gastrointestinal: normoactive bowel sounds, soft, non-tender abdomen, no palpable masses Genitourinary: no bladder fullness, no bladder tenderness Neurologic: AAOx3, sensation intact bilaterally, No weakness, No facial droop Psychiatric: not anxious, encephalopathic, poor memory, other (non-linear verbalization), No agitated ICD10 Worksheet Patient Problems: Problems Problem Status Onset CVA (cerebral infarction) Acute Paresthesia Acute History of meningitis Acute Intraparenchymal hematoma of brain Acute Diarrhea Acute Cellulitis Acute UTI (urinary tract infection) Acute Altered mental status Acute Elevated troponin Acute
--- NOTE | 2017-12-27 17:43 | ASMTCMCOM ---
CM Note CM Note Notes: Spoke to daughter who would like patient to go to [facility] for Rehab. Updated [facility] w/therapy notes. Date Signed: 12/27/2017 05:43 PM Electronically Signed By:Belkys Zafar LCSW
[2017-12-27] MEDS: ACETAMINOPHEN 325 MG TAB PO PRN (21:14)
[2017-12-28] MEDS ORDERED: hydrALAZINE 20 MG/ML VIAL IVP PRN (04:18)
[2017-12-28] MEDS: VANCOMYCIN 125 MG/2.5 ML UDL PO SCH ×4 (04:52→20:25)
[2017-12-28] MEDS: POTASSIUM Cl (KCl) 40 MEQ in D5W 1/2 NS 1,000 ML IV SCH (04:56)
--- NOTE | 2017-12-28 05:15 | CPEKG ---
Heart Rate: 144 RR Interval: 417 QRSD Interval: 90 QT Interval: 328 QTC Interval: 508 QRS [place]: -50 T Wave [place]: 221 EKG Severity - ABNORMAL ECG - EKG Impression: ATRIAL FIBRILLATION, V-RATE 104-142 EKG Impression: LEFT ANTERIOR FASCICULAR BLOCK EKG Impression: PROBABLE LVH WITH SECONDARY REPOL ABNRM EKG Impression: ST DEPRESSION, PROBABLY RATE RELATED EKG Impression: No significant change from December 25, 2017 Electronically Signed By: Tye Pelaez 28-Dec-2017 07:00:49
[2017-12-28] MEDS: METOPROLOL TARTRATE 25 MG TAB PO SCH ×4 (05:38→20:25)
[2017-12-28] MEDS ORDERED: METOPROLOL TARTRATE 5 MG/5 ML INJ IVP ONE (07:21)
[2017-12-28] MEDS ORDERED: PROTOCOL MAGNESIUM 1 DOSE IV PRN (07:21)
[2017-12-28] MEDS ORDERED: PROTOCOL POTASSIUM 1 DOSE MISC PRN ×2 (07:21→08:01)
[2017-12-28] MEDS: ENOXAPARIN 40 MG/0.4 ML SYR SC SCH (07:46)
[2017-12-28] MEDS: AMOXICILLIN/CLAVULANATE POT 875/125 MG TAB PO SCH ×2 (07:46→20:24)
[2017-12-28] MEDS ORDERED: MAGNESIUM SULF 1 GM/DEXTROSE 100 ML IV ONE (07:47)
[2017-12-28] MEDS ORDERED: POTASSIUM Cl (KCl) 10 MEQ in NS 100 ML IV SCH (08:00)
[2017-12-28] MEDS ORDERED: POTASSIUM CL 20 MEQ TAB PO ONE (08:00)
[2017-12-28] MEDS ORDERED: POTASSIUM Cl (KCl) 100 ML IV SCH (08:00)
--- NOTE | 2017-12-28 13:37 | ASMTCMCOM ---
CM Note CM Note Notes: Family interested in [facility] rehab. Therapy Notes reflect the need for SNF Rehab. Patient info updated to [facility]. Date Signed: 12/28/2017 01:36 PM Electronically Signed By:Belkys Zafar LCSW
--- NOTE | 2017-12-28 17:30 | HOSPPROG ---
Hospitalist Progress Note Assessment/Plan: Assessment: 87-year-old female presents with sepsis and acute encephalopathy, type 2 NSTEMI , recurrent E. coli urinary tract infection and C. difficile colitis, c/b new onset Afib Plan: 1. Sepsis. Present on admission, qSOFA score of 2 (encephalopathy and tachypnea ), evidenced by autonomic dysregulation in the setting of infection with evidence of end-organ failure, including acute encephalopathy, type [address]- elevation [place] -resolved 2. E. coli urinary tract infection, recurrent. Present on admission, likely infectious source with positive urinalysis, urinary incontinence, mental status changes, leukocytosis and fever, a recurrent E. coli but with different colony sensitivity than 1 month prior -s/p 3 days CTX, started on Augmentin bid 12/26 for a total 7 day abx course ( day 01/18), recommended the 7-day shorter course for a recurrent UTI b/c she also requires tx for C.diff, which will not be optimally managed until AFTER discontinuation of Augmentin -counseled daughters/patient that she is high-risk of recurrent UTIs, as this is the second in a month, and they will have to be diligent for symptoms including lethargy and mental status changes, as these have been her primary Sx on both of these occasions, and they are challenging to delineate from her baseline dementia 3. Type [address]-elevation myocardial infarction. Present on admission, Evidenced by troponin 0.4, most likely secondary to sepsis -no wma on Echo -check LDL -given her impaired functional status, would not recommend outpatient stress test, just uptitration of bblocker -holding on ASA given hx of bleeding 4. Acute on chronic encephalopathy. Evidenced by global brain dysfunction characterized as complete unresponsiveness which is an acute change from her baseline mental status which is poor memory, intermittent disorientation, disengaged affect, but she was significantly altered from her baseline and was completely unable to respond to verbal or tactile stimuli, most likely secondary to the toxic effects of infection -counseled daughters/patient that mental status significantly improved s/p 2 days of abx, but over the past 48hrs has been worsening w/ visual/auditory hallucinations and subsequent fatigue/lethargy today -WBC indicative that infxn being effectively treated, so it is more likely that patient is now experiencing the cognitive effects of hospitalization/ICU in an otherwise very susceptible patient (w/ underlying dementia) and we really need to improve sleep-wake cycle (melatonin) as well as reduce nightly disruptions ( getting patient physically relocated to PCU) 5. Hypertension. Chronic, adjusted to PO metoprolol 6. Cerebral amyloid angiopathy. Chronic, head CT without any evidence of bleed -she is at risk for ICH, and today her daughter noted some "listing" to the right during therapy session, but this has since improved, and her neuro exam at this time is 5/5 motor bilat UE/LE, facial symmetry, and I do not believe that a repeat HCT is indicated, but if patient does demonstrate further decline in cog capacity or focal neuro symptoms, will get HCT 7. Acute C. difficile colitis. POA, positive PCR and fecal incontinence w/ recent Abx exposure -cont on PO vanco, 14 days beyond Augmentin discontinuation 8. Atrial fibrillation. Acute RVR reoccurred o/n, chemically cardioverted w/ IV metoprolol (2nd time), likely provoked by sepsis/demand ischemia -increased metop to 50mg bid -will hold ASA/anticoagulation given recent hx of bleed -monitor for additional 24hrs on tele, titrate bblocker or load w/ amio if not responding Diet. Regular Prophylaxis. High risk patient, Lovenox 40 Code. Daughter is MD VERGARA, patient is do not resuscitate Disposition. Anticipated discharge uncertain this time, anticipate SNF in 24- 48hrs Subjective: patient reports no pain, resting comfortably, no recent diarrhea Objective: Vital Signs Temp Pulse Resp BP Pulse Ox 36.6 C 95 20 145/75 H 92 12/28/17 16:11 12/28/17 16:11 12/28/17 16:11 12/28/17 16:11 12/28/17 16:11 Laboratory Results 12/28/17 05:05 12/28/17 05:05 12/27/17 12/28/17 12/29/17 05:59 05:59 05:59 Intake Total 2387 1150 600 Balance 2387 1150 600 PT 14.0 SEC (12.0-15.0) 12/25/17 05:01 INR 1.06 (0.83-1.16) 12/25/17 05:01 - Time Spent With Patient Time Spent with Patient: greater than 35 minutes Time Spent with Patient: Greater than 35 minutes spent on this patients care, greater than 50% of time spent counseling, educating, and coordinating care regarding the above mentioned plan. - Pending Discharge Pending Discharge Within 24 Hours: Yes Pending Discharge Date: 12/29/17 Pending Discharge Time: 11:00 - Physical Exam Constitutional: no apparent distress, not in pain, chronically ill appearing, No uncomfortable Cardiovascular: systolic murmur (I/ at sternum), No irregularly irregular, No tachycardia, No bradycardia, No edema Respiratory: no respiratory distress, no rales or rhonchi, clear to auscultation Gastrointestinal: normoactive bowel sounds, soft, non-tender abdomen, no palpable masses, No distension Genitourinary: no bladder fullness, no bladder tenderness Neurologic: sensation intact bilaterally, other (AAOx2 (person and time, not place)), No weakness (motor 5/5 bilat UE/LE), No facial droop Psychiatric: not anxious, encephalopathic, flat affect, poor insight, poor judgement, poor memory, other (follows commands), No agitated ICD10 Worksheet Patient Problems: Problems Problem Status Onset CVA (cerebral infarction) Acute Paresthesia Acute History of meningitis Acute Intraparenchymal hematoma of brain Acute Diarrhea Acute Cellulitis Acute UTI (urinary tract infection) Acute Altered mental status Acute Elevated troponin Acute
[2017-12-28] MEDS: MELATONIN 3 MG TAB PO SCH (20:25)
[2017-12-29] MEDS: VANCOMYCIN 125 MG/2.5 ML UDL PO SCH ×4 (04:30→20:14)
[2017-12-29] MEDS: METOPROLOL TARTRATE 25 MG TAB PO SCH ×2 (10:41→20:13)
[2017-12-29] MEDS: AMOXICILLIN/CLAVULANATE POT 875/125 MG TAB PO SCH (10:41)
[2017-12-29] MEDS: ENOXAPARIN 40 MG/0.4 ML SYR SC SCH ×2 (10:41→10:54)
[2017-12-29] MEDS: ACETAMINOPHEN 325 MG TAB PO PRN ×2 (14:44→20:14)
--- NOTE | 2017-12-29 14:51 | HOSPPROG ---
Hospitalist Progress Note Assessment/Plan: # sepsis, POA (qSOFA=2, UTI/c. dif) - resolved # UTI d/t e. coli - change to keflex # c. dif - vanc PO # type II NSTEMI - metop uptitrated - no asa given ICH risk - LDL < 70 # a-fib, converted to NSR with metop IV - cont on metop 50 PO BID - no AC given hemorrhage risk # acute on chronic encephalopathy - suspect d/t infections though high risk for ICH given CAA - check CTH # htn - labile; follow on increased metop dose # cerebral amyloid angiopathy - high risk for bleeding; will hold all AC # DVT ppx - SCDs - hold lovenox given above Subjective: confused per RN; daughter refused lovenox Objective: Vital Signs Temp Pulse Resp BP Pulse Ox 36.6 C 86 12 133/63 H 92 12/29/17 11:10 12/29/17 11:10 12/29/17 11:10 12/29/17 11:10 12/29/17 11:10 Laboratory Results 12/28/17 05:05 12/29/17 04:24 12/28/17 12/29/17 12/30/17 05:59 05:59 05:59 Intake Total 1150 1050 Balance 1150 1050 PT 14.0 SEC (12.0-15.0) 12/25/17 05:01 INR 1.06 (0.83-1.16) 12/25/17 05:01 chart reviewed CTH reviewed - Physical Exam Constitutional: uncomfortable Cardiovascular: regular rate and rhythym, no murmur, rub, or gallop Respiratory: no respiratory distress, no rales or rhonchi Gastrointestinal: soft, non-tender abdomen, no palpable masses ICD10 Worksheet Patient Problems: Problems Problem Status Onset CVA (cerebral infarction) Acute Paresthesia Acute History of meningitis Acute Intraparenchymal hematoma of brain Acute Diarrhea Acute Cellulitis Acute UTI (urinary tract infection) Acute Altered mental status Acute Elevated troponin Acute
[2017-12-29] MEDS: CEPHALEXIN 500 MG CAP PO SCH ×2 (16:15→20:13)
--- NOTE | 2017-12-29 16:24 | ASMTCMCOM ---
CM Note CM Note Notes: 12/29/2017 Case Management Note [facility] visited pt today and has not yet accepted pt. [facility] will follow along to assess for appropriateness for pt ability to learn and participate in PT OT on a daily basis. Pt has 24/7 care givers from [facility]. See careplan in hard copy chart. Csse Management d/c poc: to be determined. Home Care with 24/7 support vs SNF rehab. OT is recommending returning pt home to familiar environment with 24/7 care and home care. Case Management to follow. Date Signed: 12/29/2017 04:24 PM Electronically Signed By:Radha Murray RN
[2017-12-29] MEDS: MELATONIN 3 MG TAB PO SCH (20:13)
[2017-12-30] MEDS: CEPHALEXIN 500 MG CAP PO SCH ×4 (05:54→19:50)
[2017-12-30] MEDS: VANCOMYCIN 125 MG/2.5 ML UDL PO SCH ×4 (05:54→19:54)
[2017-12-30] MEDS: METOPROLOL TARTRATE 25 MG TAB PO SCH ×2 (08:43→19:50)
--- NOTE | 2017-12-30 10:51 | ASMTCMCOM ---
CM Note CM Note Notes: 12/30/2017 Case Management Note Met w/son in law You [phone] (who is to [facility] [phone] the [facility]), daughter Kay [phone] and pt to discuss d/c plan. Family wants pt to attempt rehab to regain as much physical strength as possible and then take pt home [facility] where [facility] was residing prior to admission. Family has hired [facility] for care when they are at work. Family feels pt is nearing baseline with cognition. Family is aware of decline pt has experienced since August and are requesting Palliative Care support. Family requested [facility]. Faxed referral. Notified on phone, meeting to happen at 1500 today. [facility]ed [facility]errals to [facility], [facility], [facility] and [facility]. [facility] has contracts with [facility] and [facility]. Case Management d/c poc: to SNF of family choice pending acceptance and authorization with [facility] Case Management to follow. Date Signed: 12/30/2017 10:50 AM Electronically Signed By:Radha Murray RN
--- NOTE | 2017-12-30 14:13 | HOSPPROG ---
Hospitalist Progress Note Assessment/Plan: # sepsis, POA (qSOFA=2, UTI/c. dif) - resolved # UTI d/t e. coli - cont keflex # c. dif - vanc PO # type II NSTEMI - metop uptitrated - no asa given ICH risk - LDL < 70 - not a good candidate for intervention - medical management appropriate # a-fib, converted to NSR with metop IV - cont on metop 50 PO BID - no AC given hemorrhage risk # acute on chronic encephalopathy - suspect d/t infections though high risk for ICH given CAA - close to baseline mental status per MARIA ELENA # htn - remains elevated; restart home norvasc 2.5, cont metop # cerebral amyloid angiopathy - high risk for bleeding; will hold all AC # DVT ppx - SCDs - hold lovenox given above Subjective: no acute events; tele dc'd overnight d/t agitation Objective: Vital Signs Temp Pulse Resp BP Pulse Ox 37.1 C 72 15 177/69 H 94 12/30/17 11:42 12/30/17 11:42 12/30/17 11:42 12/30/17 11:42 12/30/17 11:42 Microbiology 12/24/17 20:48 Blood Culture - Final Blood 12/24/17 20:40 Blood Culture - Final Blood Laboratory Results 12/28/17 05:05 12/29/17 04:24 12/29/17 12/30/17 12/31/17 05:59 05:59 05:59 Intake Total 1050 800 Balance 1050 800 PT 14.0 SEC (12.0-15.0) 12/25/17 05:01 INR 1.06 (0.83-1.16) 12/25/17 05:01 - Physical Exam Constitutional: no apparent distress, appears nourished Cardiovascular: regular rate and rhythym, no murmur, rub, or gallop Respiratory: no respiratory distress, no rales or rhonchi, clear to auscultation Gastrointestinal: soft, non-tender abdomen, no palpable masses, No guarding, No rebound ICD10 Worksheet Patient Problems: Problems Problem Status Onset CVA (cerebral infarction) Acute Paresthesia Acute History of meningitis Acute Intraparenchymal hematoma of brain Acute Diarrhea Acute Cellulitis Acute UTI (urinary tract infection) Acute Altered mental status Acute Elevated troponin Acute
[2017-12-30] MEDS: ACETAMINOPHEN 325 MG TAB PO PRN (16:22)
--- NOTE | 2017-12-30 16:43 | ASMTCMCOM ---
CM Note CM Note Notes: 12/30/2017 Case Management Note Family met w/pt and [facility]. Family has chosen [facility] for rehab. [facility] has accepted pt. Case Management d/c poc: to [facility] with [facility] Case Management to follow. Date Signed: 12/30/2017 04:42 PM Electronically Signed By:Radha Murray RN
[2017-12-30] MEDS: MELATONIN 3 MG TAB PO SCH (19:51)
[2017-12-31] MEDS: VANCOMYCIN 125 MG/2.5 ML UDL PO SCH ×3 (06:12→15:47)
[2017-12-31] MEDS: CEPHALEXIN 500 MG CAP PO SCH ×3 (06:12→15:47)
[2017-12-31] MEDS: METOPROLOL TARTRATE 25 MG TAB PO SCH (08:18)
[2017-12-31] MEDS: ACETAMINOPHEN 325 MG TAB PO PRN (09:59)
[2017-12-31 11:25] VITALS: BP 159/93
--- NOTE | 2017-12-31 13:54 | PDIAF ---
- Diagnosis Diagnosis: UTI Code Status: Do Not Resuscitate - Medication Management Discharge Medications: Medications to Continue on Transfer Calcium Carbonate [Tums 500MG (*)] 1,000 mg PO BID 01/05/15 [Last Taken 09/24/15 ] Cholecalciferol Vit D3 [Vitamin D3 (*)] 5,000 units PO DAILY 01/05/15 [Last Taken 09/24/15] Cyanocobalamin [Vitamin B12 (*)] 1,000 mcg PO DAILY 09/25/15 [Last Taken ] amLODIPine BESYLATE [Norvasc 2.5 mg (*)] 2.5 mg PO BID 09/25/15 [Last Taken 07/30] Budesonide [Entocort EC] 9 mg PO DAILY #0 cap.ec 09/28/15 [Last Taken Unknown] Loperamide HCl [Imodium 2 mg (*)] 4 mg PO BID PRN #0 cap 09/28/15 [Last Taken Unknown] Melatonin [Melatonin 3 MG (*)] 3 mg PO HS tab 12/31/17 [Last Taken Unknown] Methenamine Katerina [Hiprex 1 gm (*)] 1 gm PO BID #60 tab 12/31/17 [Last Taken Unknown] Metoprolol Tartrate [Lopressor 25 mg (*)] 50 mg PO BID 30 Days #0 tab 12/31/17 [ Last Taken Unknown] Vancomycin [Vancocin Oral Liquid] 125 mg PO QID udl 12/31/17 [Last Taken Unknown] Care Home Antibiotics: vancomycin 125mg PO QID [employer]ist Antibiotic Stop Date: 01/07/18 Discharge Medications: Refer to the Discharge Home Medication list for PRN reason. - Orders Services needed: Registered Nurse, Physical Therapy, Occupational Therapy, Speech Language Pathologist Isolation Type: CDIFF Isolation Diet Recommendation: no restrictions on diet - Follow Up Care Current Providers and Referrals: Tye Waggoner [Primary Care Provider] - As per Instructions
--- NOTE | 2017-12-31 14:26 | GDS ---
[f rep st] DISCHARGE SUMMARY ALL DIAGNOSES: 1. Sepsis, present on admission. 2. Urinary tract infection due to Escherichia coli. 3. Clostridium difficile. 4. Type 2 zur-XW-pxrniuvca myocardial infarction. 5. Atrial fibrillation, resolved. 6. Egfyq-eq-ghvueqe encephalopathy. 7. Cerebral amyloid angiopathy. 8. Hypertension. HOSPITAL COURSE BY PROBLEM: 1. Urinary tract infection: This is due to E coli. It is sensitive to Keflex. She has received 7 days of treatment. I am discontinuing treatment at this point. This has been recurrent. I recommen d that she start methenamine for prophylaxis against an additional urinary tract infection. 2. Clostridium difficile colitis: She has been treated with vancomycin p.o. Recommend an additiona l 1 week of treatment to complete this after she has been off antibiotics for her urinary tract infec tion. 3. Type 2 dew-VL-xgwlkssam myocardial infarction: It is in the setting of sepsis. Troponin peaked at 0.4. She has been started on metoprolol. Her LDL is well controlled at 64. Aspirin is contraind icated, given her cerebral amyloid angiopathy with intracranial hemorrhage. Given her dementia, she is not really an intervention candidate, recommend medication management. 4. Atrial fibrillation: She had a few episodes of this. This converted to normal sinus rhythm, whi ch she has been in for the previous few days prior to her discharge. She is currently on metoprolol 50 b.i.d. Anticoagulation is contraindicated as above. 5. Mkozs-nf-kygapyv encephalopathy: Her dementia has been progressively worsening. It sounds as th ough it is somewhat rapid over the last 4 months. She is still not at her baseline per her daughter. We discussed the risks of keeping her in the hospital longer, and we both feel as though discharge to usp facility is appropriate at this time. This may be Alzheimer's dementia versus dem entia related to cerebral amyloid angiopathy. She has had [address] scans of her head which s howed no acute hemorrhage. 6. Hypertension: She was taken off propranolol, started on metoprolol. She was initially somewhat low. I have restarted her amlodipine. This may need to be up titrated over the next few days. BILLING: I spent more than 30 minutes on the day of discharge coordinating care. DISPOSITION: She is discharged in stable condition. She has seen Palliative Care, Alex, who will follow her as an outpatient. Daughter is considering hospice. /[id number]/MODL
--- NOTE | 2017-12-31 16:44 | ASDISCHSUM ---
Discharge Information Plan Status:SNF Medically Cleared to Leave:12/31/2017 Discharge Date:12/31/2017 04:10 PM D/C Disposition:Group Home Facility ADT D/C Disposition:Group Home Facility Projected Discharge Date:12/31/2017 11:00 AM Transportation at D/C:Wheelchair Van Discharge Delay Reason: Follow-Up Date:12/31/2017 11:00 AM Discharge Slot: Final Diagnosis:Sepsis, Acute encephalopathy, UTI, C-diff, Afib Placement Information Referral Type:*Mcfp/SNF Referral ID:[id number] Provider Name:[facility] Address 1:[address] Address 2: City:[place] Selection Factors: State:[place] Referral Type:Palliative Care Referral ID:-[id number] Provider Name:[facility] Address 1:[address] Phone Number: Address 2: Fax Number: [facility] [place] Selection Factors: State:[place] Patient Contact Information Contact Name:HINA Relationship:Daughter Address: Work Phone: City: [facility] Phone: [facility]/Zip Code: Email: Financial Information Financial Class:Medicare Advantage Plans Primary Plan Desc:[facility] Primary Plan Number:[id number] Secondary Plan Desc: Secondary Plan Number: Assessment Information [facility] CM Progress Note CM Note CM Note Notes: Patient admitted for AMS and possible UTI; she is C Diff positive. I spoke with her daughter and son-in-law whom she lives with. They say that she is usually mostly independent in her ADLs and that she is supervised by caregivers from [facility] during the day when her family is at work. They realize that she may need SNF rehab upon discharge. She has been to [facility] in the past after a hip fracture. I have sent referrals to [facility], [facility], and [facility]. The family will make their choice and let us know. Date Signed: 12/25/2017 11:26 AM Electronically Signed By:Noreen Day RN [facility] CM Progress Note CM Note CM Note Notes: Spoke to daughter who would like patient to go to [facility] for Rehab. Updated [facility] w/therapy notes. Date Signed: 12/27/2017 05:43 PM Electronically Signed By:Belkys Zafar LCSW [facility] CM Progress Note CM Note CM Note Notes: Family interested in [facility]. Therapy Notes reflect the need for SNF Rehab. Patient info updated to [facility]. Date Signed: 12/28/2017 01:36 PM Electronically Signed By:Belkys Zafar LCSW [facility] CM Progress Note CM Note CM Note Notes: 12/29/2017 Case Management Note [facility] visited pt today and has not yet accepted pt. [facility] will follow along to assess for appropriateness for pt ability to learn and participate in PT OT on a daily basis. Pt has 24/7 care givers from [facility]. See johnplan in hard copy chart. Csse Management d/c poc: to be determined. Home Care with 24/7 support vs SNF rehab. OT is recommending returning pt home to familiar environment with 06/04 care and home care. Case Management to follow. Date Signed: 12/29/2017 04:24 PM Electronically Signed By:Radha Murray RN [facility] [employer] Progress Note CM Note CM Note Notes: 12/30/2017 Case Management Note Met w/son in law You [phone] (who is to [facility] [phone] the [facility]), daughter Kay [phone] and pt to discuss d/c plan. Family wants pt to attempt rehab to regain as much physical strength as possible and then take pt [facility] to [facility] where [facility] was residing prior to admission. Family has hired [facility] for care when they are at work. Family feels pt is nearing baseline with cognition. Family is aware of decline pt has experienced since August and are requesting Palliative Care support. Family requested [facility]. Faxed referral. Notified on phone, meeting to happen at 1500 today. Faxed [facility]errals to [facility], [facility], [facility] and [facility]. [facility] has contracts with [facility] and [facility]. Case Management d/c poc: to SNF of family choice pending acceptance and authorization with [facility] Case Management to follow. Date Signed: 12/30/2017 10:50 AM Electronically Signed By:Radha Murray RN [facility] Progress Note CM Note CM Note Notes: 12/30/2017 Case Management Note Family met w/pt and [facility]. Family has chosen [facility] for rehab. [facility] has accepted pt. Case Management d/c poc: to [facility] with [facility] Case Management to follow. Date Signed: 12/30/2017 04:42 PM Electronically Signed By:Radha Murray RN Case Management Discharge Plan Note Case Management Discharge Discharge Order Complete? Answers: Yes Patient to Obtain Answers: Other Notes: [facility] Medications Transportation Arranged Answers: Other Notes: [facility] Transport will Pick (Date 12/31/2017 04:00 PM & Time) EMTALA Complete Answers: No Case Management Transport Answers: Yes Form Complete Faxed Final Orders Answers: Yes Agency/Facility Transfer Answers: Yes Report Printed & Faxed to Receiving Agency Family Notified Answers: No Discharge Comments Notes: Pts case discussed w/ Dr. Welch and [facility] regarding d/c POC. Pt is being discharged today. CM coordinated d/c with Tiffany from [facility]. provided [facility] w/ phone number to give report. DC orders sent to [facility]. CM available for changes. Plan: [facility] Date Signed: 12/31/2017 02:13 PM Electronically Signed By:ELEN Goncalves Intervention Information Intervention Type:*IM-Signed Date of Service:12/31/2017 04:19 PM Patient Type:Inpatient Staff Member:Katlyn Romero Hours: Discipline: Severity: Comment:
--- NOTE | 2017-12-31 16:46 | ASMTCMCOM ---
CM Note CM Note Notes: CM notified Wil at [facility] that pt has discharged today [facility]. Date Signed: 12/31/2017 04:46 PM Electronically Signed By:ELEN Goncalves
== END 2017-12-31 16:10 | DRG 871 ==
LOC: F2N 14:27 → F2W 12-28 21:55
PROVIDERS: ADMIT Internal Medicine; ATTEND Student in an Organized Health Care Education/Training Program
DX: A41.9 Sepsis, unspecified organism (principal); N39.0 Urinary tract infection, site not specified; B96.20 Unspecified Escherichia coli [E. coli] as the cause of diseases classified elsewhere; R65.20 Severe sepsis without septic shock; I21.4 Non-ST elevation (NSTEMI) myocardial infarction; G93.40 Encephalopathy, unspecified; A04.72 Enterocolitis due to Clostridium difficile, not specified as recurrent; I48.91 Unspecified atrial fibrillation; E85.4 Organ-limited amyloidosis; I68.0 Cerebral amyloid angiopathy; I10 Essential (primary) hypertension; F03.90 Unspecified dementia, unspecified severity, without behavioral disturbance, psychotic disturbance, mood disturbance, and anxiety; M81.0 Age-related osteoporosis without current pathological fracture; Z66 Do not resuscitate; Z87.891 Personal history of nicotine dependence
CPT/HCPCS: 82947-QW; 97110-GP; 97116-GP; 97161-GP; 97165-GO; 97530-GO; 97535-GO; G8978-GP-CK; G8979-GP-CI; G8987-GO-CK; G8988-GO-CJ; J0133; J0360; J0696; J1650; J3475; J3480